=== PATIENT | female | born 1960 | race Two or more races ===

== ENCOUNTER 2021-02-01 10:26 | Outpatient (CLI) | payer OTHER | END 2021-02-01 10:34 | disposition home or self-care (01) | LOC: RX STUDY 10:26 | PROVIDERS: ATTEND Urology | DX: N39.46 Mixed incontinence (principal); N81.89 Other female genital prolapse; N31.8 Other neuromuscular dysfunction of bladder | CPT/HCPCS: 51600; 74430; Q9958 ==